=== PATIENT | female | born 1945 | race African-American/Black ===

== ENCOUNTER 2020-09-20 06:40 | Emergency (ER) | payer MEDICARE ==
[~2020-09-20] VITALS: Ht 154.9 cm; Wt 66.2 kg
[2020-09-20 08:00] LABS: BASOPHILS % (AUTO) 1 % (0-1); EOSINOPHILS % (AUTO) 1 % (1-7); LYMPHOCYTES % (AUTO) 15 % (22-44); MEAN CORPUSCULAR HEMOGLOBIN 30.5 pg (27.0-34.8); MEAN CORPUSCULAR HGB CONC 33.6 g/dL (32.4-35.8); MEAN PLATELET VOLUME 8.5 fL (7.4-10.4); MONOCYTES % (AUTO) 5 % (2-9); NEUTROPHILS % (AUTO) 79 % (42-75); PLATELET COUNT 273 x10^3/uL (130-400); RED BLOOD COUNT 4.34 x10^6/uL (3.82-5.3); RED CELL DISTRIBUTION WIDTH 14.8 % (9.6-15.2)
[2020-09-20 08:03] LABS: MD NO
[2020-09-20 08:08] LABS: ALANINE AMINOTRANSFERASE 16 U/L (12-78); ALBUMIN 3.9 g/dL (3.4-5.0); ANION GAP 7 mmol/L (5-15); CALCIUM 10.5 mg/dL (8.5-10.1); CHLORIDE 106 mmol/L (98-107); CREATININE 1.31 mg/dL (0.55-1.02)
[2020-09-20 08:10] LABS: ALKALINE PHOSPHATASE 68 U/L (45-117); BILIRUBIN,TOTAL 0.8 mg/dL (0.2-1.0); TOTAL PROTEIN 8.3 g/dL (6.4-8.2)
--- NOTE | 2020-09-20 08:55 | NUR ---
PT WALKED BACK FROM LOBBY TO ROOM AT THIS TIME.
--- NOTE | 2020-09-20 09:01 | NUR ---
AMBULATORY TO & FROM [facility] W/OUT INCIDENT; CLOUDY VOIDED SPECIMEN PROVIDED; GAIT STEADY. C/O NAUSEA X 2. ABD "FEELS LIKE GAS" DECREASED APPETITE. LOST 10LB OVER THE PAST COUPLE OF MONTHS. LAST BM: SMALL, LAST NOC. STATES FEELS LIKE A THYROID NODULE IS PRESSING ON NECK. RAN OUT OF [facility] 2-3 DAYS AGO
[2020-09-20] MEDS ORDERED: LORA-445 PO (09:13)
[2020-09-20] MEDS ORDERED: LOSA1TAB22 PO (09:13)
[2020-09-20] MEDS ORDERED: LEVO75TA85 PO (09:13)
[2020-09-20] MEDS ORDERED: AMLO-150 PO (09:13)
[2020-09-20] MEDS ORDERED: ONDANSETRON 2MG/ML, 2ML ONE (09:19)
[2020-09-20] MEDS ORDERED: ONDANSETRON 2MG/ML, 2ML IVPush ONE (09:30)
[2020-09-20] MEDS ORDERED: SODIUM CHLORIDE FLUSH 10ML SYR IVF ONE (09:30)
[2020-09-20 09:34] LABS: MICROSCOPIC INDICATED
[2020-09-20] MEDS ORDERED: OMNIPAQUE 350 MG/ML, 100ML BOTTLE ONE (09:57)
--- NOTE | 2020-09-20 10:20 | NUR ---
RESTING ON GURNEY. REPORTS DECREASE IN NAUSEA. ADDITIONAL WARM BLANKET PROVIDED. SPOUSE IN ROOM. CALL LIGHT W/IN REACH.
--- NOTE | 2020-09-20 11:49 | NUR ---
PT REFUSED TV EXAM AND WANT TA EXAM INSTEAD, STARTING TO FILL BLADDER UNTIL IT FULL, [facility] PHILLIPS WILL CALL US DEPT. WHENEVER PT'S READY --> US DELAY
--- NOTE | 2020-09-20 11:55 | NUR ---
PER U/S TECH; PT REFUSING TRANSVAG U/S; TECH NOTIFIED ERP. ERP APPROVED TRANSABD U/S. PER TECH, PT NEEDS FULL BLADDER. WILL CONSULT ERP RE: WATER VS NS BOLUS.
--- NOTE | 2020-09-20 12:09 | NUR ---
DISCUSSED TRANSVAG U/S VS TRANSABD U/S W/ PT AND SPOUSE. PT WILLING TO TRY TRANSVAG. U/S NOTIFIED.
--- NOTE | 2020-09-20 12:36 | NUR ---
TO U/S PER [facility]
[2020-09-20 14:35] VITALS: BP 153/78
--- NOTE | 2020-09-20 14:40 | NUR ---
AMBUALTORY TO & FROM [facility] W/OUT INCIDENT; GAIT STEADY.
--- NOTE | 2020-09-20 14:43 | NUR ---
DISCUSSED DC INSTRUCTIONS W/ PT & SPOUSE. PT UNDER THE IMPRESSION ERP WAS GOING TO WRITE FOR [facility]. SPOUSE STATES HE'LL GO TO [place] TOMORROW TO [employer] [facility] RX THAT WAS FILLED PRIOR TO TODAY'S VISIT. WILL CONSULT ERP.
== END 2020-09-20 15:09 | disposition home or self-care (01) ==
LOC: ED 09:53
DX: N30.00 Acute cystitis without hematuria (principal); D25.9 Leiomyoma of uterus, unspecified; R10.9 Unspecified abdominal pain; R11.0 Nausea; R53.1 Weakness; I10 Essential (primary) hypertension
CPT/HCPCS: 36415; 74177; 76830; 80053; 81001; 83690; 85025; 87077; 87086; 93005; 96374; 99285; J2405; Q9967

== ENCOUNTER 2020-09-22 09:18 | Emergency (ER) | payer MEDICARE ==
[~2020-09-22] VITALS: Ht 154.9 cm; Wt 66.3 kg
[~2020-09-22 09:18] MED LIST: AMLO-150 PO; LEVO75TA85 PO; LORA-445 PO; LOSA1TAB22 PO
[2020-09-22] MEDS ORDERED: LORazepam 1MG TABLET PO ONE (10:30)
[2020-09-22] MEDS ORDERED: LORazepam 1MG TABLET ONE (10:38)
[2020-09-22 10:39] LABS: BASOPHILS % (AUTO) 1 % (0-1); EOSINOPHILS % (AUTO) 0 % (1-7); LYMPHOCYTES % (AUTO) 13 % (22-44); MEAN CORPUSCULAR HEMOGLOBIN 29.7 pg (27.0-34.8); MEAN CORPUSCULAR HGB CONC 32.5 g/dL (32.4-35.8); MEAN PLATELET VOLUME 8.1 fL (7.4-10.4); MONOCYTES % (AUTO) 6 % (2-9); NEUTROPHILS % (AUTO) 80 % (42-75); PLATELET COUNT 269 x10^3/uL (130-400); RED BLOOD COUNT 4.17 x10^6/uL (3.82-5.3); RED CELL DISTRIBUTION WIDTH 14.7 % (9.6-15.2)
[2020-09-22 10:42] LABS: MD NO
[2020-09-22 10:50] LABS: ALANINE AMINOTRANSFERASE 13 U/L (12-78); ALBUMIN 3.8 g/dL (3.4-5.0); CALCIUM 10.4 mg/dL (8.5-10.1); CREATININE 1.39 mg/dL (0.55-1.02)
[2020-09-22 11:01] LABS: ALKALINE PHOSPHATASE 69 U/L (45-117); BILIRUBIN,TOTAL 0.6 mg/dL (0.2-1.0)
[2020-09-22 11:16] LABS: ANION GAP 5 mmol/L (5-15); CHLORIDE 102 mmol/L (98-107)
--- NOTE | 2020-09-22 11:39 | NUR ---
all results back, chart up for recheck. awaiting MD and dispo.
[2020-09-22 12:26] VITALS: BP 152/67
== END 2020-09-22 12:29 | disposition home or self-care (01) ==
LOC: ED 10:34
DX: F19.239 Other psychoactive substance dependence with withdrawal, unspecified (principal); F43.9 Reaction to severe stress, unspecified; F41.9 Anxiety disorder, unspecified; G47.00 Insomnia, unspecified; I10 Essential (primary) hypertension
CPT/HCPCS: 36415; 80053; 84443; 85025; 99283